=== PATIENT | female | born 1950 | race African-American/Black ===

== ENCOUNTER 2016-06-12 17:28 | Outpatient (CLI) | payer MEDICARE, OTHER ==
[2016-06-12 19:34] LABS: Anion Gap 19 mmol/L (10-20); BUN (Urea Nitrogen) 15 mg/dL (9.8-20.1); Calc. Creatinine Clearance 0 mL/min (70-130); Calcium 10.6 mg/dL (7.8-10.44); Carbon Dioxide 27 mmol/L (23-31); Chloride 102 mmol/L (98-107); Estimated GFR-MDRD Greater than 90
== END 2016-06-12 17:29 | disposition home or self-care (01) ==
LOC: NAV SJFMSP 17:28
PROVIDERS: ATTEND Family Medicine
DX: E87.6 Hypokalemia (principal)
CPT/HCPCS: 80048

== ENCOUNTER 2016-10-30 13:27 | Emergency (ER) | payer MEDICARE, OTHER ==
[2016-10-30] MEDS ORDERED: Ondansetron HCl/PF 4 MG/2 ML Vial ONE (13:41)
[2016-10-30] MEDS ORDERED: Fentanyl 100 MCG/2 ML VIAL ONE (13:41)
[2016-10-30 14:11] LABS: #Basophils 0.1 thou/uL (0.0-0.2); #Eosinphils 0.3 thou/uL (0.0-0.7); #Lymphocytes 1.9 thou/uL (1.20-3.40); #Monocytes 0.6 thou/uL (0.11-0.59); #Neutrophils 4.3 thou/uL (1.40-6.50); %Basophils 1.5 % (0.0-1.0); %Eosinophils 3.8 % (0.0-10.0); %Lymphocytes 26.5 % (21.0-51.0); %Monocytes 8.1 % (0.0-10.0); %Neutrophils 60.2 % (42.0-75.0); Anisocytosis SLIGHT = 6-15 cells (100X) (0-5/hpf); Hemoglobin 12.9 g/dL (12.0-16.0); MDiff Complete? YES; Mean Corpuscular Hemoglobin 24.4 pg (27.0-31.0); Mean Corpuscular Volume 78.9 fl (81.0-99.0); Mean Platelet Volume 7.6 fL (7.4-10.4); Microcytosis SLIGHT = 6-15 cells (100X) (0-5/hpf); PLT Morphology Comment Appears Adequate; Platelet Count 379 thou/uL (130-400); RBC Distribution Width 13.5 % (11.5-14.5); Red Blood Cell (RBC) Count 5.27 mill/uL (4.20-5.40); White Blood Cell (WBC) Count 7.2 thou/uL (4.8-10.8)
[2016-10-30 14:14] LABS: CKMB 0.9 ng/mL (0-6.6); Troponin I Less than 0.010 ng/mL (< 0.028)
[2016-10-30 14:19] LABS: ALT (SGPT) 23 U/L (8-55); AST (SGOT) 17 U/L (5-34); Albumin 4.7 g/dL (3.4-4.8); Alkaline Phosphatase 76 U/L (40-150); Anion Gap 15 mmol/L (10-20); BUN (Urea Nitrogen) 13 mg/dL (9.8-20.1); Bilirubin, Total 0.9 mg/dL (0.2-1.2); CK (CPK) 157 U/L (29-168); Calc. Creatinine Clearance 0 mL/min (70-130); Calcium 10.5 mg/dL (7.8-10.44); Carbon Dioxide 28 mmol/L (23-31); Chloride 102 mmol/L (98-107); Estimated GFR-MDRD 90; Globulin 3.8 g/dL (2.4-3.5); Glucose 121 mg/dL (80-115); Lipase 12 U/L (8-78); Potassium 3.1 mmol/L (3.5-5.1); Protein, Total 8.5 g/dL (6.0-8.3); Sodium 142 mmol/L (136-145)
[2016-10-30] MEDS ORDERED: Potassium Chloride 20 MEQ TAB ONE (14:31)
== END 2016-10-30 16:40 | disposition home or self-care (01) ==
LOC: NAV ERS 13:27
DX: R10.13 Epigastric pain (principal); E87.1 Hypo-osmolality and hyponatremia; E78.5 Hyperlipidemia, unspecified; I10 Essential (primary) hypertension; E66.9 Obesity, unspecified; Z79.82 Long term (current) use of aspirin; Z79.899 Other long term (current) drug therapy
CPT/HCPCS: 80053; 82150; 82553; 83690; 84484; 85025; 93005; 96374; 96375; J2405; J3010

== ENCOUNTER 2016-11-01 15:56 | Outpatient (CLI) | payer MEDICARE, OTHER ==
--- NOTE | 2016-11-01 16:23 | ULT ---
ULTRASOUND ABDOMEN LIMITED: (RIGHT UPPER QUADRANT) HISTORY: 66-year-old female with epigastric pain and right upper quadrant abdominal pain for three weeks. FINDINGS: The gallbladder has normal wall thickness and has no evidence of gallstones or sludge. The hepatic echogenicity is diffusely increased, consistent with fatty liver. The right kidney has normal echog enicity and has no hydronephrosis. The pancreas is visualized, although ultrasound is relatively in sensitive for pancreatic pathology compared to CT and MRI. There is no biliary dilation. The commo n duct caliber is 7 mm. IMPRESSION: 1) Hepatic steatosis. 2) Otherwise negative. jn POS: CET
== END 2016-11-01 15:57 | disposition home or self-care (01) ==
LOC: NAV ULT 15:56
PROVIDERS: ATTEND Specialist
DX: R10.13 Epigastric pain (principal); K76.0 Fatty (change of) liver, not elsewhere classified
CPT/HCPCS: 76705

== ENCOUNTER 2017-11-27 18:10 | Emergency (ER) | payer MEDICARE ==
[2017-11-27 19:27] LABS: #Basophils 0.1 thou/uL (0.0-0.2); #Eosinphils 0.2 thou/uL (0.0-0.7); #Lymphocytes 2.4 thou/uL (1.20-3.40); #Monocytes 0.7 thou/uL (0.11-0.59); #Neutrophils 4.7 thou/uL (1.40-6.50); %Basophils 1.1 % (0.0-1.0); %Eosinophils 1.9 % (0.0-10.0); %Lymphocytes 29.3 % (21.0-51.0); %Monocytes 8.8 % (0.0-10.0); %Neutrophils 58.9 % (42.0-75.0); Hemoglobin 12.6 g/dL (12.0-16.0); Mean Corpuscular HGB CONC 31.4 g/dL (32.0-36.0); Mean Corpuscular Hemoglobin 24.2 pg (27.0-31.0); Mean Corpuscular Volume 77.1 fL (78.0-98.0); Mean Platelet Volume 7.7 fL (7.4-10.4); Platelet Count 339 thou/uL (130-400); RBC Distribution Width 13.6 % (11.5-14.5); Red Blood Cell (RBC) Count 5.22 mill/uL (4.20-5.40)
[2017-11-27 19:30] LABS: ALT (SGPT) 18 U/L (8-55); AST (SGOT) 19 U/L (5-34); Albumin 4.5 g/dL (3.4-4.8); Alkaline Phosphatase 83 U/L (40-150); Anion Gap 16 mmol/L (10-20); BUN (Urea Nitrogen) 18 mg/dL (9.8-20.1); Bilirubin, Total 0.8 mg/dL (0.2-1.2); Calc. Creatinine Clearance 0 mL/min (70-130); Calcium 10.9 mg/dL (7.8-10.44); Carbon Dioxide 26 mmol/L (23-31); Chloride 102 mmol/L (98-107); Estimated GFR-MDRD 86; Globulin 3.8 g/dL (2.4-3.5); Glucose 92 mg/dL (80-115); Potassium 3.7 mmol/L (3.5-5.1); Protein, Total 8.3 g/dL (6.0-8.3); Sodium 140 mmol/L (136-145)
[2017-11-27 19:31] LABS: CKMB 1.1 ng/mL (0-6.6); Troponin I Less than 0.010 ng/mL (< 0.028)
[2017-11-27 19:58] LABS: Hypochromia SLIGHT = 6-15 cells (100X) (0-5/hpf); MDiff Complete? YES; PLT Morphology Comment Appears Adequate
--- NOTE | 2017-11-27 20:07 | RAD ---
CHEST ONE VIEW 11/27/17 HISTORY: Chest pain. COMPARISON: None. FINDINGS: Lungs are without focal air space consolidation, pneumothorax or effusion. The cardiac silhouette and mediastinal contours are within normal limits. No acute osseous abnormality. Rotator cuff arthropath y bilaterally. IMPRESSION: No acute intrathoracic abnormality. POS: HOME
== END 2017-11-27 21:12 | disposition short-term general hospital (02) ==
LOC: NAV ERS 18:10
DX: R07.89 Other chest pain (principal); E78.5 Hyperlipidemia, unspecified; I10 Essential (primary) hypertension; E66.9 Obesity, unspecified; Z86.73 Personal history of transient ischemic attack (TIA), and cerebral infarction without residual deficits; Z79.899 Other long term (current) drug therapy; Z79.82 Long term (current) use of aspirin
CPT/HCPCS: 71045; 80053; 82553; 84484; 85025; 93005; 94760